=== PATIENT | female | born 1945 | race Caucasian/White ===

== ENCOUNTER → 2020-05-02 13:52 | Outpatient (BNVA) | payer MEDICARE, SELFPAY | PROVIDERS: Family Provider Internal Medicine; PCP Internal Medicine; Visit Provider Anesthesiology | DX: G89.29 Other chronic pain (principal); M47.817 Spondylosis without myelopathy or radiculopathy, lumbosacral region; M54.9 Dorsalgia, unspecified; Z79.891 Long term (current) use of opiate analgesic | CPT/HCPCS: 99212; 99214 ==

== ENCOUNTER → 2020-09-03 09:35 | Outpatient (BNVA) | payer MEDICARE, SELFPAY | PROVIDERS: Family Provider Internal Medicine; PCP Internal Medicine; Visit Provider Nurse Practitioner | DX: G89.29 Other chronic pain (principal); M47.817 Spondylosis without myelopathy or radiculopathy, lumbosacral region; Z79.891 Long term (current) use of opiate analgesic | CPT/HCPCS: 99213; 99214 ==

== ENCOUNTER → 2020-10-01 10:36 | Outpatient (BNVA) | payer MEDICARE, SELFPAY | PROVIDERS: Family Provider Internal Medicine; PCP Internal Medicine; Visit Provider Nurse Practitioner | DX: G89.29 Other chronic pain (principal); M47.817 Spondylosis without myelopathy or radiculopathy, lumbosacral region; Z79.891 Long term (current) use of opiate analgesic | CPT/HCPCS: 99213 ==

== ENCOUNTER → 2021-01-16 08:52 | Outpatient (BNVA) | payer MEDICARE, SELFPAY | PROVIDERS: Family Provider Internal Medicine; PCP Internal Medicine; Visit Provider Anesthesiology | DX: G89.29 Other chronic pain (principal); M47.817 Spondylosis without myelopathy or radiculopathy, lumbosacral region; Z79.891 Long term (current) use of opiate analgesic | CPT/HCPCS: 99213 ==

== ENCOUNTER → 2021-06-06 09:31 | Outpatient (BNVA) | payer MEDICARE, SELFPAY | PROVIDERS: Family Provider Internal Medicine; PCP Internal Medicine; Visit Provider Anesthesiology | DX: G89.29 Other chronic pain (principal); M47.817 Spondylosis without myelopathy or radiculopathy, lumbosacral region; Z79.891 Long term (current) use of opiate analgesic | CPT/HCPCS: 99213 ==

== ENCOUNTER → 2021-11-25 11:08 | Outpatient (BNVA) | payer MEDICARE, SELFPAY | PROVIDERS: Family Provider Internal Medicine; PCP Internal Medicine; Visit Provider Internal Medicine Cardiovascular Disease | DX: I35.0 Nonrheumatic aortic (valve) stenosis (principal) | CPT/HCPCS: 99213 ==

== ENCOUNTER 2022-02-11 14:46 | Outpatient (CLI) | payer MEDICARE, SELFPAY ==
--- NOTE | 2022-02-11 15:00 | USCV_ITS ---
Kindra Covarrubias Age: 76 Gender: F : 1945 Exam Date: 02/11/2022 15:12 Ordering Phys: Melinda Francis MD ([email or web address]) Technologist: Yehuda Tellez Exam Location: [facility] [place] Indication: Aortic stenois BP: 136 / 78 HR: 74 Rhythm: Sinus Technical Quality: Good MEASUREMENTS (Male / Female) Normal Values 2D ECHO LV Diastolic Diameter PLAX 4.4 cm 4.2 - 5.9 / 3.9 - 5.3 cm LV Systolic Diameter PLAX 2.9 cm IVS Diastolic Thickness 1.0 cm 0.6 - 1.0 / 0.6 - 0.9 cm IVS Systolic Thickness 1.2 cm LVPW Diastolic Thickness 1.2 cm 0.6 - 1.0 / 0.6 - 0.9 cm LVPW Systolic Thickness 1.4 cm LVOT Diameter 2.1 cm LV Ejection Fraction 2D Teich 63.6 % LV Ejection Fraction MOD 2C 72.2 % LV Ejection Fraction 2C AL 74.7 % LA Diameter 2.7 cm Aorta at Sinotubular Diameter 2.7 cm M-MODE MV E Point Septal Separation 0.5 cm DOPPLER AV Peak Velocity 433.5 cm/s MV Area PHT 5.0 cm squared Mitral E to A Ratio 0.8 MV E' Velocity 56.0 cm/s Mitral E to MV E' Ratio 12.6 Mitral E to LV E' Lateral Ratio 10.8 Mitral E to LV E' Septal Ratio 15.5 TR Peak Velocity 324.0 cm/s TR Peak Gradient 42.0 mmHg TV Peak E Velocity 95.0 cm/s Right Atrial Pressure 3.0 mmHg Pulmonary Artery Systolic Pressu 45.0 mmHg PV Peak Velocity 144.0 cm/s FINDINGS Left Ventricle Normal left ventricular cavity size and systolic function. Increased left ventricular wall thickness. Left ventricular ejection fraction is estimated at 65-70 %. No regional wall motion abnormalities. Grade II diastolic dysfunction, moderately elevated filling pressures. Right Ventricle Normal right ventricular size and systolic function. Right ventricular systolic pressure 41 mmHg. Right Atrium Normal right atrial size. Left Atrium Mildly increased left atrial size. Mitral Valve Severe mitral annular calcification. No mitral valve stenosis. Aortic Valve Markedly thickened and calcified aortic valve. Severe aortic valve stenosis, peak velocity 4 m/s, peak gradient 66 mm Hg, mean gradient 34 mmHg, DELLA 0.8 cm squared. Mild aortic valve regurgitation. Tricuspid Valve Structurally normal tricuspid valve. No tricuspid valve stenosis. Trace to mild tricuspid valve regurgitation. Pulmonic Valve Structurally normal pulmonic valve. No pulmonary valve stenosis. No pulmonary valve regurgitation. Pericardium No pericardial effusion. Aorta Normal size aortic root and proximal ascending aorta. IVC Normal IVC dimension. CONCLUSIONS 1. Normal left ventricular cavity size and systolic function. Increased left ventricular wall thickness. Left ventricular ejection fraction is estimated at 65-70 %. No regional wall motion abnormalities. Grade II diastolic dysfunction, moderately elevated filling pressures. 2. Severe aortic valve stenosis, peak velocity 4 m/s, peak gradient 66 mm Hg, mean gradient 34 mmHg, DELLA 0.8 cm squared. Mild aortic valve regurgitation. 3. When compared to previous study dated 05/09/2019, aortic stenosis seems to have worsened. Melinda Francis MD (Electronically Signed) Final Date: 14 February 2022 11:53 S
== END 2022-02-11 14:47 | disposition home or self-care (01) ==
LOC: RAD 14:50
PROVIDERS: PCP Internal Medicine; Visit Provider Internal Medicine Cardiovascular Disease
DX: R06.02 Shortness of breath (principal); I35.0 Nonrheumatic aortic (valve) stenosis
CPT/HCPCS: 93306

== ENCOUNTER → 2022-02-25 13:10 | Outpatient (BNVA) | payer MEDICARE, SELFPAY | PROVIDERS: PCP Internal Medicine; Visit Provider Nurse Practitioner Family | DX: I35.0 Nonrheumatic aortic (valve) stenosis (principal) | CPT/HCPCS: 99213 ==

== ENCOUNTER → 2022-06-23 14:43 | Outpatient (BNVA) | payer MEDICARE, SELFPAY | PROVIDERS: PCP Internal Medicine; Visit Provider Internal Medicine Cardiovascular Disease | DX: I35.0 Nonrheumatic aortic (valve) stenosis (principal); I10 Essential (primary) hypertension | CPT/HCPCS: 99214 ==

== ENCOUNTER 2022-07-09 10:14 | Outpatient (CLI) | payer MEDICARE, SELFPAY ==
[2022-07-09 11:11] LABS: Basophils % 0.3 %; Eosinophils # 0.2 10^3/uL (0.0-0.8); Hemoglobin 13.6 g/dL (11.5-15.3); Lymphocytes # 1.1 10^3/uL (0.8-4.8); Lymphocytes % 16.9 %; Mean Corpuscular HGB Conc 32.4 g/dL (30.0-36.0); Mean Corpuscular Hemoglobin 30.6 pg (28.0-34.0); Mean Corpuscular Volume 94.6 fl (81-99); Mean Platelet Volume 11.3 fL (7.4-10.4); Monocytes # 0.5 10^3/uL (0.2-0.9); Monocytes % 8.1 %; Neutrophils % 71.6 %; Nucleated Red Blood Cells % 0 %; Platelet Count 219 10^3/cmm (130-400); Red Blood Count 4.44 10^6/uL (4.1-5.3); Red Cell Distribution Width 14.1 % (12.1-15.1); White Blood Count 6.7 10^3/uL (4.0-10.0)
[2022-07-09 11:26] LABS: INR 0.98 (0.83-1.21); Prothrombin Time (Patient) 13.3 Seconds (12.0-15.1)
[2022-07-09 11:35] LABS: Anion Gap 14.1 (5-19); Blood Urea Nitrogen 14 mg/dL (8-23); Calcium 10.1 mg/dL (8.5-10.5); Carbon Dioxide 27 mmol/L (22-29); Chloride 104 mmol/L (98-107); Glucose 97 mg/dL (65-115); Osmolality Calculated 292 mOsm/kg (285-295); Potassium 4.1 mmol/L (3.5-5.1); Sodium 141 mmol/L (136-145)
== END 2022-07-09 10:15 | disposition home or self-care (01) ==
LOC: LAB 10:17
PROVIDERS: PCP Nurse Practitioner Family; Visit Provider Internal Medicine Cardiovascular Disease
DX: I35.0 Nonrheumatic aortic (valve) stenosis (principal); I10 Essential (primary) hypertension
CPT/HCPCS: 36415; 80048; 85025; 85610

== ENCOUNTER 2022-07-17 14:11 | Emergency (ER) | payer MEDICARE, SELFPAY ==
[2022-07-17 14:16] VITALS: BP 174/78; PULSE 97; RESP 18; TEMP 36.5; O2SAT 95; BMI 34.9
--- NOTE | 2022-07-17 14:31 | ED_ITS ---
HPI - Back Pain/Injury General: Chief Complaint: Back Pain/Injury Stated Complaint: back/abd pain Time Seen by Provider: 07/17/22 14:31 History of Present Illness: Ms. Covarrubias is a 76-year-old lady with history of hypertension, aortic stenosis, degenerative disc disease presenting to the emergency department due to epigastric and back pain. Onset of symptoms was a few hours ago after eating. Endorses epigastric pain with radiation to the back and pain of the left shoulder. Feels like a heaviness or tightness. No other associated typical cardiac features. Does report a possible history of gallstones or gallbladder abnormality. Has had increasing weight frequent episodes over the past few months. No other specific changes in health, exacerbating, or alleviating factors identified. Onset (ago): hour(s) Timing: constant Severity: moderate Similar Symptoms Previously: Yes Quality: other (Heaviness) Exacerbating factors: none Relieving factors: none Context: other (After eating) Associated symptoms: Reports no associated symptoms Review of Systems General: Reports: 10 or more systems reviewed and unremarkable except in HPI and below PFSH ED PFSH: Medical History Chronic midline low back pain Encounter for long-term opiate analgesic use HTN (hypertension) Opioid contract exists Spondylosis of lumbosacral region without myelopathy or radiculopathy Surgical History S/p bilateral carpal tunnel release S/P right cataract extraction S/p total knee replacement, bilateral Family History Other Cancer Social History Smoking and tobacco status: never smoked Second hand smoke exposure: No Alcohol intake: current History of recent travel: No Physical Exam Const: COMMON NORMALS: alert GENERAL APPEARANCE: cooperative and well developed HENMT: COMMON NORMALS: normocephalic and atraumatic HEAD & SCALP: normocephalic and atraumatic Eye: COMMON NORMALS: conjunctivae normal CONJUNCTIVA: Yes conjunctivae normal SCLERA: sclerae normal Neck/C-Spine: COMMON NORMALS: supple GENERAL: Yes trachea midline Resp: COMMON NORMALS: clear to auscultation bilaterally EFFORT & INSPECTION: Yes able to speak in complete sentences AUSCULTATION: clear to auscultation bilaterally Cardio: COMMON NORMALS: regular rate and regular rhythm RATE: regular rate RHYTHM: regular rhythm HEART SOUNDS: Murmur heart sound present GI: COMMON NORMALS: Soft to palpation PALPATION: Yes Soft to palpation, Yes Tenderness to palpation present (GI), No Guarding due to palpation present (GI) and No Rigid due to palpation PERCUSSION: normal to percussion Extremity: GENERAL: Yes normal exam except as noted and No edema Neuro: COMMON NORMALS: moves all extremities SENSORIUM/ORIENTATION: Yes alert and No Orientation impaired Psych: COMMON NORMALS: mental status grossly normal and Normal thought process present THOUGHT PROCESS: Normal thought process present Course Vital Signs: Vital signs: Vital Signs Temperature 97.7 F 07/17/22 14:16 Pulse Rate 89 07/17/22 18:34 Respiratory Rate 16 07/17/22 18:34 Blood Pressure 119/85 07/17/22 18:34 Pulse Oximetry 95 07/17/22 14:16 Oxygen Delivery Me thod 07/17/22 14:16 MDM - Back Pain/Injury Medical Decision Making 76-year-old lady presenting with abdominal and back pain. Exam as above. EKG notable for sinus rhythm, no STEMI. Labs with no leukocytosis, normal hemoglobin. Metabolic panel without significant derangement. 2-hour delta troponin is negative. Chest x-ray negative for acute infiltrate or pneumothorax. Patient does have a hiatal hernia. Gallbladder ultrasound negative. Patient proved on reassessment. Exact etiology of patient symptoms is unclear, unspecified epigastric pain. I did discuss the possible etiologies including cardiac etiologies however the patient is comfortable with outpatient management. The results of ED evaluation were discussed with the patient including prescriptions and/or symptomatic cares (if applicable) including appropriate and responsible use, followup plan, and return precautions. The patient verbalized understanding and felt safe for discharge. Medical Records I reviewed the patient's medical records. Labs I reviewed the patient's lab results. 07/17/22 14:40 07/17/22 14:40 Radiology Impressions Chest X-Ray 07/17/22 14:37 IMPRESSION: 1. No acute cardiopulmonary finding. 2. Large hiatal hernia. Gallbladder Ultrasound 07/17/22 14:38 IMPRESSION: No acute findings. Laboratory Results WBC 8.4 10^3/uL (4.0-10.0) 07/17/22 14:40 RBC 4.21 10^6/uL (4.1-5.3) 07/17/22 14:40 Hgb 13.0 g/dL (11.5-15.3) 07/17/22 14:40 Hct 39.5 % (37.0-47.0) 07/17/22 14:40 MCV 93.8 fl (81-99) 07/17/22 14:40 MCH 30.9 pg (28.0-34.0) 07/17/22 14:40 MCHC 32.9 g/dL (30.0-36.0) 07/17/22 14:40 RDW 13.9 % (12.1-15.1) 07/17/22 14:40 Plt Count 213 10^3/cmm (130-400) 07/17/22 14:40 MPV 11.0 fL (7.4-10.4) H 07/17/22 14:40 Neut % (Auto) 80.0 % 07/17/22 14:40 Lymph % (Auto) 13.2 % 07/17/22 14:40 [place] % (Auto) 5.0 % 07/17/22 14:40 Eos % (Auto) 1.2 % 07/17/22 14:40 Baso % (Auto) 0.4 % 07/17/22 14:40 Neut # (Auto) 6.76 10^3/uL (1.8-7.7) 07/17/22 14:40 Lymph # (Auto) 1.1 10^3/uL (0.8-4.8) 07/17/22 14:40 [place] # (Auto) 0.4 10^3/uL (0.2-0.9) 07/17/22 14:40 Eos # (Auto) 0.1 10^3/uL (0.0-0.8) 07/17/22 14:40 Baso # (Auto) 0.0 10^3/uL (0.0-0.1) 07/17/22 14:40 Nucleated RBC % (auto) 0 % 07/17/22 14:40 Nucleated RBCs # 0.0 /100WBC 07/17/22 14:40 Sodium 136 mmol/L (136-145) 07/17/22 14:40 Potassium 4.1 mmol/L (3.5-5.1) 07/17/22 14:40 Chloride 102 mmol/L (98-107) 07/17/22 14:40 Carbon Dioxide 25 mmol/L (22-29) 07/17/22 14:40 Anion Gap 13.1 (5-19) 07/17/22 14:40 BUN 14 mg/dL (8-23) 07/17/22 14:40 Creatinine 0.7 mg/dL (0.5-0.9) 07/17/22 14:40 GFR Calculation Not Reportable 07/17/22 14:40 Glucose 146 mg/dL (65-115) H 07/17/22 14:40 Calculated Osmolality 285 mOsm/kg (285-295) 07/17/22 14:40 Calcium 9.9 mg/dL (8.5-10.5) 07/17/22 14:40 Total Bilirubin 0.4 mg/dL (0.15-1.2) 07/17/22 14:40 AST 16 U/L (0-32) 07/17/22 14:40 ALT 8 U/L (0-33) 07/17/22 14:40 Alkaline Phosphatase 60 U/L (35-105) 07/17/22 14:40 Troponin T Baseline 7 ng/L (0-10) 07/17/22 14:40 Troponin T 120 Minute 9.45 ng/L (0-10) 07/17/22 17:04 Delta Troponin T 2.45 ABS# (0-10) 07/17/22 17:04 NT-Pro-B Natriuret Pep 417 pg/mL (0-450) 07/17/22 14:40 Total Protein 7.2 g/dL (6.6-8.7) 07/17/22 14:40 Albumin 4.1 g/dL (3.5-5.2) 07/17/22 14:40 Globulin 3.1 g/dL (1.3-4.6) 07/17/22 14:40 Lipase 17 U/L (13-60) 07/17/22 14:40 Discharge Plan Discharge Patient Disposition: Home Clinical Impression: Abdominal pain, epigastric Condition: Stable Prescriptions: No Action aspirin [Adult Low Dose Aspirin] 81 mg tablet,delayed release (DR/EC) 81 mg PO DAILY hydrocodone-acetaminophen 5-325 mg tablet 1 tab PO TID PRN (Reason: pain) 23 Days Qty: 69 0RF atorvastatin 40 mg tablet 40 mg PO QPM pantoprazole 40 mg tablet,delayed release (DR/EC) 40 mg PO DAILY metoprolol succinate 25 mg tablet extended release 24 hr 25 mg PO DAILY Discharge Orders: Discharge ED (Routine); Ordered 07/17/22 Ordered By: Jesus Hodges Referrals: Ellen Cruz APN [Primary Care Provider] - Discharge Diet: Usual diet Discharge Activity: Increase activity as tolerated Patient Instructions: Chest Pain (ED), Abdominal Pain (ED) Activity Restrictions/Additional Instructions: Thank you for visiting the emergency department. You were seen and evaluated for epigastric or chest discomfort. The exact cause of your symptoms is unclear though does not appear to need inpatient management at this time. Please follow-up with your primary care provider. I will message case management for cardiology follow-up. Return to the emergency department for worsening symptoms or anything else that you are concerned about a feel needs emergency department evaluation. Coding Level of Care Code ED [employer] Field Assistant for Jerog Fwd Exam Comprehensive
--- NOTE | 2022-07-17 14:37 | XR_ITS ---
WS: [id number] Exam: XR chest 1V portable [id number] Date/Time of Exam: 07/17/2022 2:37 PM Reason For Exam: cp Comparison 12/29/2016. The lungs are clear and fully inflated. Heart size is normal. Large hiatal hernia noted. No pleural e ffusions. Regional bony elements are intact. XR/XR chest 1V portable [id number] IMPRESSION: 1. No acute cardiopulmonary finding. 2. Large hiatal hernia.
--- NOTE | 2022-07-17 14:38 | USR_ITS ---
PROCEDURE INFORMATION: Exam: US Abdomen, Limited; Right Upper Quadrant Exam date and time: 07/17/2022 4:40 PM Age: 76 years old Clinical indication: Abdominal pain; Acute; Additional info: Ruq pain TECHNIQUE: Imaging protocol: Real time ultrasound of the abdomen with image documentation. Limited exam focused on the right upper quadrant. COMPARISON: US transvaginal [id number] 03/20/2016 8:04 AM FINDINGS: Liver: Normal. No masses. Gallbladder: Normal. No gallstones. There is no gallbladder wall thickening. Biliary ducts: Normal. No stones. No dilation. Pancreas: Visualized pancreas is unremarkable. Right kidney: Normal. No mass. No hydronephrosis. Portal venous: Hepatopetal flow in the main portal vein. US/US gall bladder [id number] IMPRESSION: No acute findings.
--- NOTE | 2022-07-17 14:38 | ECG_ITS ---
[facility] Test Date: 2022-07-17 Pat Name: Kindra Covarrubias Department: Room: Gender: Female Family Services Coordinator: : 1945 Requested By: Jesus Hodges Order Number: [id number] Concetta MD: Melinda Francis M.D. Measurements Intervals [place] Rate: 88 P: 36 CT: 165 QRS: 8 QRSD: 85 T: 49 QT: 336 QTc: 408 Interpretive Statements SINUS RHYTHM POSSIBLE LEFT ATRIAL ENLARGEMENT [-0.1mV P-WAVE IN V1/V2] POSSIBLE LEFT VENTRICULAR HYPERTROPHY Compared to ECG 12/29/2016 23:11:18 T-wave abnormality no longer present Electronically Signed On 07-17-2022 17:34:33 SCREW DOWN by Melinda Francis M.D. [id number]
[2022-07-17] MEDS: aspirin 81 mg Chew Tablet 324 MG PO (15:01)
[2022-07-17 15:04] LABS: Basophils % 0.4 %; Eosinophils # 0.1 10^3/uL (0.0-0.8); Eosinophils % 1.2 %; Hematocrit 39.5 % (37.0-47.0); Lymphocytes # 1.1 10^3/uL (0.8-4.8); Lymphocytes % 13.2 %; Mean Corpuscular HGB Conc 32.9 g/dL (30.0-36.0); Mean Corpuscular Hemoglobin 30.9 pg (28.0-34.0); Mean Corpuscular Volume 93.8 fl (81-99); Monocytes # 0.4 10^3/uL (0.2-0.9); Neutrophils # 6.76 10^3/uL (1.8-7.7); Nucleated Red Blood Cells % 0 %; Platelet Count 213 10^3/cmm (130-400); Red Blood Count 4.21 10^6/uL (4.1-5.3); Red Cell Distribution Width 13.9 % (12.1-15.1); White Blood Count 8.4 10^3/uL (4.0-10.0)
[2022-07-17 15:23] LABS: Troponin(5th) Baseline 7 ng/L (0-10)
[2022-07-17 15:32] LABS: Alanine Aminotransferase 8 U/L (0-33); Albumin Level 4.1 g/dL (3.5-5.2); Alkaline Phosphatase 60 U/L (35-105); Anion Gap 13.1 (5-19); Aspartate Amino Transferase 16 U/L (0-32); Blood Urea Nitrogen 14 mg/dL (8-23); Calcium 9.9 mg/dL (8.5-10.5); Carbon Dioxide 25 mmol/L (22-29); Chloride 102 mmol/L (98-107); Globulin 3.1 g/dL (1.3-4.6); Glucose 146 mg/dL (65-115); Lipase 17 U/L (13-60); NT Pro B Type Natriuretic Pept 417 pg/mL (0-450); Osmolality Calculated 285 mOsm/kg (285-295); Potassium 4.1 mmol/L (3.5-5.1); Sodium 136 mmol/L (136-145); Total Bilirubin 0.4 mg/dL (0.15-1.2); Total Protein 7.2 g/dL (6.6-8.7)
--- NOTE | 2022-07-17 16:38 | ECG_ITS ---
[facility] Test Date: 2022-07-17 Pat Name: Kindra Covarrubias Department: Room: Gender: Female Sling Operator: : 1945 Requested By: Jesus Hodges Order Number: [id number] Concetta MD: Melinda Francis M.D. Measurements Intervals [place] Rate: 68 P: -8 VT: 161 QRS: 23 QRSD: 80 T: 52 QT: 373 QTc: 399 Interpretive Statements SINUS RHYTHM Compared to ECG 12/29/2016 23:11:18 Left ventricular hypertrophy no longer present T-wave abnormality no longer present Electronically Signed On 07-17-2022 17:33:48 BACK TACKER by Melinda Francis M.D. [id number]
[2022-07-17 17:37] LABS: Troponin 5 2HR 9.45 ng/L (0-10)
[2022-07-17 17:45] LABS: Troponin 5 2HR Delta 2.45 ABS# (0-10)
[2022-07-17 18:34] VITALS: BP 119/85; PULSE 89; RESP 16
--- NOTE | 2022-07-21 10:47 | DCPLANNER ---
Addendum entered by Vannesa Gtz 08/05/22 12:17: This appointment was rescheduled Addendum entered by Vannesa Gtz 07/21/22 15:11: Patient has a follow up appointment scheduled for Wednesday, August 03, 2022 at 3:00 with Radha Wright at [facility]. Clinic will call patient with appointment information. Original Note: procedure manager had message to schedule a follow up appointment for patient with cardiology. procedure manager sent patients information to the front office staff at [facility]. Patients information will be printed and reviewed. Clinic will call patient with appointment information.
== END 2022-07-17 18:35 | disposition home or self-care (01) ==
PROVIDERS: Emergency Provider Emergency Medicine; PCP Nurse Practitioner Family
DX: R10.13 Epigastric pain (principal); Z79.82 Long term (current) use of aspirin; I10 Essential (primary) hypertension
CPT/HCPCS: 36415; 71045; 76705; 80053; 83690; 83880; 84484; 85025; 93005; 99285

== ENCOUNTER 2022-10-23 15:41 | Outpatient (CLI) | payer MEDICARE, SELFPAY ==
--- NOTE | 2022-10-23 16:17 | XR_ITS ---
WS: [id number] XR shoulder LT min 2V* [id number] REASON FOR EXAM: LEFT SHOULDER PAIN FINDINGS: No fracture or dislocation. Acromioclavicular joint is intact with mild subchondral sclerosis. Moderate narrowing of the glenohumeral joint space with moderate subchondral sclerosis and significan t osteophytosis of the humeral head and glenoid. Calcification overlying the humeral head which appears to be within the rotator cuff tendon. 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 Rotator cuff crystal deposition calcific tendinosis.
== END 2022-10-23 15:42 | disposition home or self-care (01) ==
PROVIDERS: PCP Nurse Practitioner Family; Visit Provider Nurse Practitioner Family
DX: M19.012 Primary osteoarthritis, left shoulder; M75.32 Calcific tendinitis of left shoulder
CPT/HCPCS: 73030

== ENCOUNTER → 2022-11-20 10:54 | Outpatient (BNVA) | payer MEDICARE, MEDICAID, SELFPAY | PROVIDERS: PCP Nurse Practitioner Family; Visit Provider Student in an Organized Health Care Education/Training Program | DX: M75.42 Impingement syndrome of left shoulder (principal); M19.012 Primary osteoarthritis, left shoulder | CPT/HCPCS: 20610; 73060; 99204; J1040 ==

== ENCOUNTER 2022-11-23 06:00 | Outpatient (RCR) | payer MEDICARE, MEDICAID, SELFPAY | END 2022-12-23 23:59 | disposition home or self-care (01) | LOC: APT 06:00 | PROVIDERS: Visit Provider Student in an Organized Health Care Education/Training Program | DX: M25.511 Pain in right shoulder (principal) | CPT/HCPCS: 97110; 97162 ==

== ENCOUNTER 2022-12-24 06:00 | Outpatient (RCR) | payer MEDICARE, SELFPAY | END 2023-01-22 23:59 | disposition home or self-care (01) | LOC: APT 06:00 | PROVIDERS: Visit Provider Student in an Organized Health Care Education/Training Program | DX: M25.511 Pain in right shoulder (principal) | CPT/HCPCS: 97110 ==

== ENCOUNTER → 2022-12-28 10:58 | Outpatient (BNVA) | payer MEDICARE, MEDICAID, SELFPAY | PROVIDERS: Referring Provider Nurse Practitioner Family; Visit Provider Student in an Organized Health Care Education/Training Program | DX: M75.42 Impingement syndrome of left shoulder (principal); M19.012 Primary osteoarthritis, left shoulder | CPT/HCPCS: 99213 ==